=== PATIENT | male | born 1980 | race Caucasian/White ===

== ENCOUNTER 2019-11-21 19:41 | Inpatient (IN) | payer OTHER ==
[~2019-11-21] VITALS: Ht 182.9 cm; Wt 60.5 kg
[2019-11-21] MEDS ORDERED: ONDANSETRON HCL/PF 4 MG/2 ML VIAL ONE (20:19)
[2019-11-21] MEDS ORDERED: HYDROMORPHONE 1 MG/1 ML DISP.SYRIN ONE (20:19)
[2019-11-21] MEDS ORDERED: ACETAMINOPHEN 325 MG TABLET ONE (20:19)
[2019-11-21] MEDS ORDERED: CEFEPIME 1 GM VIAL ONE (20:21)
[2019-11-21] MEDS ORDERED: VANCOMYCIN 1 GM VIAL ONE (20:21)
[2019-11-21 20:27] LABS: BASOPHILS # (AUTO) 0.1 /CMM (0.0-0.2); BASOPHILS % (AUTO) 0.5 % (0.0-2.0); EOSINOPHILS % (AUTO) 0.2 % (0.0-6.0); HEMATOCRIT 37 % (39-51); HEMOGLOBIN 11.5 g/dL (13.5-17.5); LYMPHOCYTES # (AUTO) 1.4 /CMM (0.8-4.8); LYMPHOCYTES % (AUTO) 8.8 % (20.0-44.0); MEAN CORPUSCULAR HGB CONC 31 g/dl (31.0-36.0); MEAN CORPUSCULAR VOLUME 83 fL (80-96); MONOCYTES # (AUTO) 1.9 /CMM (0.1-1.30); MONOCYTES % (AUTO) 12.2 % (2.0-12.0); NEUTROPHILS # (AUTO) 12.4 /CMM (1.8-8.9); NEUTROPHILS % (AUTO) 78.3 % (43.0-81.0); PLATELET COUNT (AUTO) 618 /CMM (150-450); RED BLOOD CELL COUNT(AUTO) 4.45 MIL/uL (4.5-6.0); WHITE BLOOD COUNT (AUTO) 15.9 K/uL (4.3-11.0)
[2019-11-21] MEDS ORDERED: IV NS 0.9% 1,000 ML BAG IV ONE (20:30)
[2019-11-21] MEDS ORDERED: VANCOMYCIN 1 GM in IV D5W 250 ML IV ONE (20:30)
[2019-11-21] MEDS ORDERED: ACETAMINOPHEN 325 MG TABLET PO ONE (20:30)
[2019-11-21] MEDS ORDERED: ONDANSETRON HCL/PF 4 MG/2 ML VIAL IV ONE (20:30)
[2019-11-21] MEDS ORDERED: CEFEPIME 1 GM in IV D5W 50 ML IV ONE (20:30)
[2019-11-21] MEDS ORDERED: HYDROMORPHONE INJ 0.5 MG/0.5 ML SYRINGE IV ONE (20:30)
[2019-11-21 20:34] LABS: CALCIUM, SERUM 9.1 mg/dL (8.5-10.1); CREATININE 0.8 mg/dL (0.6-1.3); POTASSIUM 3.2 mmol/L (3.5-5.1)
[2019-11-21 20:40] LABS: ALBUMIN 2.3 g/dL (3.4-5.0); BILIRUBIN,TOTAL 0.5 mg/dL (0.2-1.0); TOTAL PROTEIN, SERUM 8.7 g/dL (6.4-8.2)
--- NOTE | 2019-11-21 20:59 | NUR ---
PT C/O SOB, CHRISTIANO BUTTOCK & LT ANKLE WOUND PAIN. PT AAOX3, VSS. RR EVEN & UNLABORED. DENIES CP, DIZZINESS, N/V, WEAKNESS AT THIS TIME. PT SEEN & EVAL'D BY DR. COKER. MEDICATED ORDERED, PT LAURIE WELL. WILL CONT TO MONITOR.
[2019-11-21 21:03] LABS: C-REACTIVE PROTEIN 34.7 mg/dL (0.0-0.9)
--- NOTE | 2019-11-21 21:03 | NUR ---
COVID SWAB SENT TO LAB
--- NOTE | 2019-11-21 21:17 | NUR ---
[facility]# [phone] FAX# [phone]
--- NOTE | 2019-11-21 21:43 | NUR ---
REPORT GIVEN TO SANDY PEÑA FOR TEMI.
[2019-11-21] MEDS ORDERED: MAG HYDROX/AL HYDROX/SIMETH 30 ML UDC PO PRN (22:00)
[2019-11-21] MEDS ORDERED: ACETAMINOPHEN 325 MG TABLET PO PRN (22:00)
[2019-11-21] MEDS ORDERED: MAGNESIUM HYDROXIDE 30 ML UDC PO PRN (22:00)
[2019-11-21] MEDS ORDERED: Z GUARD REMEDY 2 OZ OINT TP PRN (22:00)
[2019-11-21] MEDS ORDERED: ONDANSETRON HCL/PF 4 MG/2 ML VIAL IVP PRN (22:00)
[2019-11-21] MEDS ORDERED: ZOLPIDEM TARTRATE 5 MG TABLET PO PRN (22:00)
[2019-11-21] MEDS ORDERED: CEFEPIME 1 GM in IV D5W 50 ML IV SCH (22:00)
[2019-11-21 22:20] VITALS: BP 98/66
[2019-11-21 22:45] VITALS: BP 98/66
--- NOTE | 2019-11-21 23:45 | NUR ---
BEER BREWERCANVAS WORKER APPRENTICE NOTES RECEIVED PATIENT FROM ER VIA BALDOMERO, ALERT AND ORIENTED X 4. VERBALLY RESPONSIVE AND ABLE TO FOLLOW DIRECTIONS. BREATHING REGULAR AND UNLABORED ON ROOM AIR. RIGHT FOREARM G20 IV LINE INTACT AND PATENT, FLUSHING WELL WITH NO BLEEDING OR S/S INFILTRATION NOTED. BODY ASSESSMENT DONE, SEEN WITH BILATERAL BUTTOCK AND SACRAL PRESSURE ULCER, LEFT LEG WOUND, LEFT HEEL AND LEFT FOOT WOUNDS. PHOTO TAKEN, KEPT IN CHART. PATIENT DOESN'T HAVE AN ADVANCE DIRECTIVES AND WISHED TO BE FULL CODE. DENIES SUICIDAL IDEATION OR PAIN/DISCOMFORT AT THIS TIME. BELONGINGS AND VITAL SIGNS CHECKED. BED LOW AND LOCKED ON SEMI FOWLERS POSITION. CALL LIGHT IN REACH. WILL CONTINUE TO MONITOR.
--- NOTE | 2019-11-22 | NUR ---
SPORTS MEDICINE PHYSICIAN NOTES REFUSED VITAL SIGNS TAKING FOR 0000 AND 0400 PER PATIENT DON'T BOTHER HIM. RISK AND BENEFITS EXPLAINED.
--- NOTE | 2019-11-22 | NUR ---
LINE DEPARTMENT SUPERVISOR NOTES REFUSED TO PUT ON PRODUCTION CREW SUPERVISOR AND TO PLACE MONEY ON THE SAFE, RISK AND BENEFITS EXPLAINED. MICHELE CARBAJAL NOTIFIED.
[2019-11-22 00:11] LABS: BILIRUBIN,DIRECT 0.1 mg/dL (0.0-0.2)
[2019-11-22] MEDS ORDERED: IV PREMIX NS +20MEQ KCL 1 L IV ONE (00:34)
[2019-11-22] MEDS: Potassium Chloride 20 MEQ in IV NS 0.9% 1,000 ML IV PRN ×2 (00:45→13:48)
--- NOTE | 2019-11-22 03:00 | NUR ---
FREIGHT ROUTER NOTES INFORMED MICROFILM CLERK SOLOMON OF PATIENT'S VTE SCORE OF 4 WITH ORDERS FOR LOVENOX 40MG SQ DAILY AND DVT PUMP APPLICATION NOTED AND CARRIED OUT.
--- NOTE | 2019-11-22 04:00 | NUR ---
FIRE PROTECTION SPECIALIST NOTES REFUSED VITAL SIGNS TAKING FOR 0400 PER PATIENT DON'T BOTHER HIM. RISK AND BENEFITS EXPLAINED.
[2019-11-22] MEDS ORDERED: VANCOMYCIN 500 MG VIAL ONE (04:03)
[2019-11-22] MEDS ORDERED: VANCOMYCIN 1 GM VIAL ONE (04:03)
[2019-11-22] MEDS ORDERED: VANCOMYCIN 1.25 GM in IV D5W 250 ML IV SCH (05:00)
--- NOTE | 2019-11-22 06:25 | NUR ---
PROFESSOR OF ENVIRONMENTAL SCIENCE CLOSING NOTES PATIENT IN BED ALERT AND ORIENTED X 4. AFEBRILE WITH NO S/S OF DISTRESS OBSERVED. RIGHT FOREARM G20 IV LINE PATENT AND INFUSING WELL. NO COMPLAINTS OF PAIN/DISCOMFORT REPORTED AT THIS TIME. BED LOW AND LOCKED ON SEMI FOWLERS POSITION. CALL LIGHT IN REACH. WILL ENDORSE TO MORNING SHIFT FOR TEMI.
--- NOTE | 2019-11-22 07:51 | NUR ---
RN NOTES RECEIVED PATIENT IN BED RESTING COMFORTABLY IN MODERATE HIGH BACK REST. ALERT AND ORIENTED X 4. NO SIGNS OF DISTRESS NOTED AT THIS TIME. STILL REFUSED CARDIAC MONITORING, MD MADE AWARE. IV FLUIDS ON RIGHT FOREARM #20 IV LINE PATENT AND INFUSING WELL. SAFETY MEASURES IN PLACE, BED LOW AND LOCKED POSITION WITH SIDE RAILS UP X2. CALL LIGHT IN REACH. WILL CONTINUE TO MONITOR.
[2019-11-22] MEDS ORDERED: FEE PK DOSING 1 MIN EA MC ONE (08:18)
[2019-11-22] MEDS: PANTOPRAZOLE 40 MG VIAL IV SCH (08:45)
[2019-11-22] MEDS: ENOXAPARIN SODIUM 40 MG/0.4 ML DISP.SYRIN SQ SCH ×2 (08:45→08:57)
--- NOTE | 2019-11-22 08:57 | NUR ---
RN NOTES PT CHANGES HIS MIND AND REFUSED LOVENOX, EXPLAINED RISKS AND BENEFITS, BUT PATIENT STILL REFUSED. WILL CONTINUE TO MONITOR.
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
[2019-11-22] MEDS: VANCOMYCIN 1 GM in IV D5W 250 ML IV SCH ×2 (13:12→22:08)
[2019-11-22] MEDS: HYDROCODONE/APAP 5/325MG 1 EACH TABLET PO PRN ×2 (18:04→22:09)
--- NOTE | 2019-11-22 18:45 | NUR ---
RN NOTES PATIENT IN BED RESTING COMFORTABLY IN MODERATE HIGH BACK REST. ALERT AND ORIENTED X 4. NO SIGNS OF DISTRESS NOTED THROUGHOUT THE SHIFT. REFUSED LAB DRAW, MADE AWARE. IV FLUIDS ON RIGHT FOREARM #20 IV LINE PATENT AND INFUSING WELL. SAFETY MEASURES IN PLACE, BED LOW AND LOCKED POSITION WITH SIDE RAILS UP X2. CALL LIGHT IN REACH. WILL ENDORSE TO MACHINE GREASER NURSE FOR TEMI.
--- NOTE | 2019-11-22 19:10 | NUR ---
RN PM MED SURGE NOTES REPORT RECIEVED FROM DARON DELGADO. PATIENT IN BED RESTING COMFORTABLY IN MODERATE HIGH BACK REST. ALERT AND ORIENTED X 4. IV FLUIDS ON RIGHT FOREARM #20 INFUSING NS PLUS 20MEQ AT 90 ML PER HOUR. . SAFETY MEASURES IN PLACE, BED LOW AND LOCKED POSITION WITH SIDE RAILS UP X2. CALL LIGHT IN REACH.
[2019-11-22] MEDS: CEFEPIME 1 GM in IV D5W 50 ML IV SCH (20:41)
--- NOTE | 2019-11-22 22:30 | NUR ---
AIR MATTRESS. WOUND CARE PERFORMED. NO KCI MATTRESS WAS DELIVERED. PATIENT TRANSFERRED TO ISOFLEX MATTRESS IN THE MEAN TIME. PATIENT TURNING INDEPEDNETLY AND REFUSIGN TO BE ASSISTED WITH TURNING. STAES "I DON'T NEED HELP, I CAN DO IT MY SELF." PERINEAL CARE GIVNE. DRESSING CHANGE PERFORMED TO SACRAL WOUND S AND BILATERAL WOUNDS ON BUTTOCKS. WILL CONT TO MONITOR.
[2019-11-23] MEDS: HYDROCODONE/APAP 5/325MG 1 EACH TABLET PO PRN ×2 (04:19→08:35)
--- NOTE | 2019-11-23 05:00 | NUR ---
refused am labs Addendum: 11/23/19 at 0747 by DANICA JAFFE RN spoke with pharmacist reguarding vancomycin not being give. patient refused am labs. pharmacist states that md should be notified because the vancomycin cant be safely givne till lab values are known for safe administration.
[2019-11-23 08:00] VITALS: BP 144/69
--- NOTE | 2019-11-23 08:00 | NUR ---
MS RN AM NOTES RECEIVED PATIENT IN BED RESTING COMFORTABLY .ALERT AND ORIENTED X 4. NO SIGNS OF DISTRESS NOTED AT THIS TIME. STILL REFUSED CARDIAC MONITORING, MD MADE AWARE. IV FLUIDS NS +20 MEQ KCL AT 90 ML/HR ON RIGHT FOREARM #20 IV LINE PATENT AND INFUSING WELL. PT HAS BEEN REFUSING VANCO TROUGH AND IV ATB VANCO WAS DUE AT 5AM AND PT HAS BEEN REFUSING VANCO IV ATB FOR THE PAST 3 DAYS PER NIGHT NURSE-WHO NOTIFIED DR BHATIA AND PHARMACIST,NASEEM. PATIENT FINALLY AGREED TO HAVE BLOOD DRAWN FOR LAB TEST AFTER EXPLAINING THE RISKS AND BENEFITS.SAFETY MEASURES IN PLACE, BED LOW AND LOCKED POSITION WITH SIDE RAILS UP X2. CALL LIGHT IN REACH. WILL CONTINUE TO MONITOR.
[2019-11-23] MEDS: PANTOPRAZOLE 40 MG VIAL IV SCH (08:29)
[2019-11-23] MEDS: ENOXAPARIN SODIUM 40 MG/0.4 ML DISP.SYRIN SQ SCH (08:37)
[2019-11-23 08:56] LABS: BASOPHILS % (AUTO) 0.5 % (0.0-2.0); EOSINOPHILS % (AUTO) 4.9 % (0.0-6.0); HEMATOCRIT 33 % (39-51); HEMOGLOBIN 10.2 g/dL (13.5-17.5); LYMPHOCYTES # (AUTO) 1.4 /CMM (0.8-4.8); LYMPHOCYTES % (AUTO) 14.3 % (20.0-44.0); MEAN CORPUSCULAR HGB CONC 31 g/dl (31.0-36.0); MEAN CORPUSCULAR VOLUME 84 fL (80-96); MONOCYTES % (AUTO) 10.7 % (2.0-12.0); NEUTROPHILS # (AUTO) 6.6 /CMM (1.8-8.9); NEUTROPHILS % (AUTO) 69.6 % (43.0-81.0); PLATELET COUNT (AUTO) 536 /CMM (150-450); RED BLOOD CELL COUNT(AUTO) 3.96 MIL/uL (4.5-6.0); WHITE BLOOD COUNT (AUTO) 9.4 K/uL (4.3-11.0)
[2019-11-23 09:21] LABS: CALCIUM, SERUM 8.7 mg/dL (8.5-10.1); CREATININE 0.5 mg/dL (0.6-1.3); MAGNESIUM 1.9 mg/dL (1.8-2.4); PHOSPHORUS 2.9 mg/dL (2.5-4.9); POTASSIUM 3.3 mmol/L (3.5-5.1)
--- NOTE | 2019-11-23 09:29 | NUR ---
WOUND CARE CONSULT: PT REFUSED SKIN ASSESSMENT. REVIEWED CHART, NURSING DOCUMENTATION AND PHOTOS WHICH SHOW MULTIPLE WOUNDS, PRESENT ON ADMISSION INCLUDING LOWER EXTREMITIES. RECOMMENDATIONS MADE FOR SKIN PROTECTION AND WOUND CARE OF TORSO WOUNDS (BASED ON PHOTOS). RECOMMEND SURGICAL AND DPM CONSULTS. DR YUDI LUIS AND DR CHOI NOTIFIED OF CONSULT REQUESTS. PT IS ON [place] ISOFLEX LOW AIRLOSS BED. MD IN AGREEMENT WITH PLAN OF CARE.
[2019-11-23] MEDS: VANCOMYCIN 1 GM in IV D5W 250 ML IV SCH ×2 (10:30→23:41)
--- NOTE | 2019-11-23 10:38 | NUR ---
NOTIFIED DR BHATIA OF PT HAVING MRSA POSITIVE IN BLOOD WITH NO NEW ORDER. PT IS ON VANCO IV
--- NOTE | 2019-11-23 10:40 | NUR ---
MAILMASTER met with pt again today for an assessment. MAILMASTER introduced self, explained the role of the SW and purpose of the visit. Pt is cooperative today with SW. Pt is alert and oriented x 3. Pt reports he has been homeless since September 2019. Pt reports, he was residing at [address] [place] [address] prior to becoming homeless. Pt receives SSDI, but declined to say how much he is getting monthly. Pt reports, he has a place to go to upon discharge but would not disclose where he is going. Pt reports, he will make his own arrangements to get there. Pt reports, no history of psychiatric diagnosis or hospitalizations. Pt denies suicidal and homicidal ideations at this time. Pt is wheelchair bound and is able to transfer himself independently in and out of his wheelchair. Pt uses marijuana daily but denies any other drugs or cigarette use. Pt denies alcohol use/ or abuse. Pt declined all resources. MAILMASTER provided pt with active listening, supportive counseling, emotional support, validation of feelings and positive coping skills. No other social service needs are requested at this time. Speech Language Therapist to remain available for support as needed.
[2019-11-23 11:05] LABS: APPEARANCE,URINE CLOUDY (CLEAR); BILIRUBIN,URINE NEGATIVE (NEGATIVE); BLOOD, URINE NEGATIVE Ery/uL (NEGATIVE); COLOR,URINE YELLOW (YELLOW); KETONES,URINE NEGATIVE (NEGATIVE); LEUKOCYTE ESTERASE ,URINE SMALL (NEGATIVE); NITRITE, URINE NEGATIVE (NEGATIVE); PH,URINE 6.5 (5.0-8.0); PROTEIN,URINE NEGATIVE (NEGATIVE); UGLUCOSE NEGATIVE (NEGATIVE); UROBILINOGEN,URINE 0.2 EU/dL (0.2)
[2019-11-23] MEDS: Potassium Chloride 20 MEQ in IV NS 0.9% 1,000 ML IV PRN ×2 (11:07→23:47)
[2019-11-23] MEDS: DAKINS QUARTER STRENGTH (0.125%) 480 ML BOTTLE TOP SCH (11:23)
[2019-11-23] MEDS: oxyCODONE IR immediate release 5 MG PO PRN ×2 (11:50→19:42)
[2019-11-23 13:12] LABS: BACTERIA,URINE Few /HPF (None Seen); RBC,URINE 0-2 /HPF (0-2); SQUAMOUS EPITHELIAL CELL,UR Few /HPF (None Seen)
[2019-11-23 13:13] LABS: YEAST,URINE Few /HPF (None Seen)
[2019-11-23] MEDS ORDERED: POTASSIUM CHLORIDE 20 MEQ TAB.PRT.SR PO ONE (14:00)
[2019-11-23 16:07] VITALS: BP 100/60
--- NOTE | 2019-11-23 18:11 | NUR ---
PT IS RESTING IN BED BUSY TALKING IN HIS CELL PHONE.DENIES PAIN OR DISTRESS AT THIS TIME. WITH ONGOING IVF OF NS +20 MEQ KCL RUNNING AT 90 ML/HR INFUSING WELL TO LFA. EXCISIONAL WOUND DEBRIDEMENT OF LLE AND LT HEEL WOUNDS WAS DONE THIS AFTERNOON BY HEATHER PRAKASH. PT TOLERATED WELL.AFLOAT CHRISTIANO HEELS WITH PILLOWS AND PT WAS ABLE TO TURN BY HIMSELF.WOUND TX DONE TO HIS CHRISTIANO BUTTOCKS AND SACRAL ST 4 ORDERED. ON ISOFLEX MATTRESS. CALL LIGHT PLACED WITHIN REACH.
--- NOTE | 2019-11-23 19:30 | NUR ---
RN PM OPENING NOTE REPORT RECIEVED FROM DOLLY DELGADO. PT IN BED IN NO APPARENT DISTRESS. IVF OF NS +20 MEQ KCL RUNNING AT 90 ML/HR INFUSING WELL TO LFA GAUGE 22. PER REPORT EXCISIONAL WOUND DEBRIDEMENT OF LLE AND LT HEEL WOUNDS WAS DONE THIS AFTERNOON BY HEATHER PRAKASH. BLE AFLOAT CHRISTIANO HEELS WITH PILLOWS AND PT WAS ABLE TO TURN BY HIMSELF. ON ISOFLEX MATTRESS. CALL LIGHT PLACED WITHIN REACH. VERBALIZED UNDERSTANDING TO CALL FOR ASSISTANCE IF NEEDED.
[2019-11-23 20:00] VITALS: BP 108/62
[2019-11-23] MEDS: CEFEPIME 1 GM in IV D5W 50 ML IV SCH (20:21)
[2019-11-24] MEDS: oxyCODONE IR immediate release 5 MG PO PRN ×4 (02:23→21:05)
--- NOTE | 2019-11-24 06:24 | NUR ---
refused blood draw. supervisor dental laboratory will come back later after breakfast
--- NOTE | 2019-11-24 06:50 | NUR ---
RN PM CLOSING NOTES. PT SEEN IN BED IN NO APPARENT DISTRESS. ON RA. IVF INFUSING TO LEFT FA 22 GAUGE. NO S/S OF INFILTRATION. DRESSING CHANGED PERFORMED LAST NIGHT PER ORDERS ON SACRAL D/T SOILING. ON ISOFLEX AIR MATTRESS. CALL LIGHT IN REACH BED DOWN AND LOCKED.
--- NOTE | 2019-11-24 07:30 | NUR ---
RN OPENING NOTES RECEIVED PT IN BED. AWAKE ALERT AND ORIENTED X4. NO CARDIAC OR RESPIRATORY DISTRESS NOTED. NO SOB NOTED. SATURATING WELL ON ROOM AIR. IV ACCESS NOTED ON L FOREARM G22. INTACT AND PATENT AND FLUSHING WELL. NO S/S OF INFECTION OR INFILTRATION NOTED. SAFETY PRECAUTIONS IN PLACE. BED LOCKED AND IN LOW POSITION. SIDE RAILS UP X2. BED ALARM ON. CALL LIGHT WITHIN REACH. WILL CONT TO MONITOR.
[2019-11-24 08:00] VITALS: BP 98/51
[2019-11-24] MEDS: PANTOPRAZOLE 40 MG VIAL IV SCH (08:24)
[2019-11-24] MEDS: ENOXAPARIN SODIUM 40 MG/0.4 ML DISP.SYRIN SQ SCH (08:26)
[2019-11-24] MEDS: DAKINS QUARTER STRENGTH (0.125%) 480 ML BOTTLE TOP SCH (08:47)
[2019-11-24] MEDS: THERAHONEY GEL 1.5 OZ TUBE TP SCH (08:48)
[2019-11-24] MEDS: VANCOMYCIN 1 GM in IV D5W 250 ML IV SCH ×2 (10:38→22:43)
--- NOTE | 2019-11-24 14:00 | NUR ---
WOUND CARE WOUND CARE DONE. PT TOLERATED TX PROCEDURE WELL. NO C/O PAIN OR DISCOMFORT.
[2019-11-24 14:50] LABS: BASOPHILS % (AUTO) 0.5 % (0.0-2.0); EOSINOPHILS % (AUTO) 5.7 % (0.0-6.0); HEMATOCRIT 27 % (39-51); HEMOGLOBIN 8.6 g/dL (13.5-17.5); LYMPHOCYTES # (AUTO) 1.8 /CMM (0.8-4.8); LYMPHOCYTES % (AUTO) 20.6 % (20.0-44.0); MEAN CORPUSCULAR HGB CONC 32 g/dl (31.0-36.0); MEAN CORPUSCULAR VOLUME 83 fL (80-96); MONOCYTES # (AUTO) 1.1 /CMM (0.1-1.30); MONOCYTES % (AUTO) 13.2 % (2.0-12.0); NEUTROPHILS # (AUTO) 5.1 /CMM (1.8-8.9); PLATELET COUNT (AUTO) 516 /CMM (150-450); RED BLOOD CELL COUNT(AUTO) 3.28 MIL/uL (4.5-6.0); WHITE BLOOD COUNT (AUTO) 8.5 K/uL (4.3-11.0)
[2019-11-24 15:38] LABS: CALCIUM, SERUM 8.1 mg/dL (8.5-10.1); CREATININE 0.4 mg/dL (0.6-1.3); MAGNESIUM 1.7 mg/dL (1.8-2.4); POTASSIUM 4.2 mmol/L (3.5-5.1)
[2019-11-24 16:00] VITALS: BP 100/57
--- NOTE | 2019-11-24 18:17 | NUR ---
RN CLOSING NOTES RECEIVED PT IN BED. AWAKE ALERT AND ORIENTED X4. NO CARDIAC OR RESPIRATORY DISTRESS NOTED. NO SOB NOTED. SATURATING WELL ON ROOM AIR. IV ACCESS NOTED ON L FOREARM G22. INTACT AND PATENT AND FLUSHING WELL. NO S/S OF INFECTION OR INFILTRATION NOTED. WOUND CARE TX DONE TODAY. TOLERATED WELL. PAIN WAS WELL MANAGED THROUGHOUT THE SHIFT. SAFETY PRECAUTIONS IN PLACE. BED LOCKED AND IN LOW POSITION. SIDE RAILS UP X2. BED ALARM ON. CALL LIGHT WITHIN REACH. WILL CONT TO MONITOR.
--- NOTE | 2019-11-24 19:30 | NUR ---
RN NOTE RECEIVED PT IN BED, AO X 4, NO S/SX OF ACUTE DISTRESS AT THIS TIME. NO SOB NOTED. PATIENT'S BREATHING IS EVEN AND UNLABORED. SATURATING >95% ON ROOM AIR. NOTED IV SITE ON LFA G22, PATENT AND FLUSHING WELL, NO S/S OF INFECTION OR INFILTRATION. PARAPLEGIA WAS NOTED, BUT PATIENT ABLE TO URINATE USING URINAL AT BEDSIDE. SAFETY MEASURES IMPLEMENTED PER PROTOCOL. PATIENT BED ALARM IS ON. HEAD OF BED ELEVATED. BED IS LOCKED, IN LOWEST POSITION AND SIDE RAILS UP. CALL LIGHT WITHIN REACH OF THE PATIENT. ISOLATION PRECAUTIONS IN PLACE. WILL CONTINUE TO MONITOR AND REASSESS FOR ANY CHANGES.
[2019-11-24 20:00] VITALS: BP 108/58
[2019-11-24] MEDS: CEFEPIME 1 GM in IV D5W 50 ML IV SCH (20:42)
--- NOTE | 2019-11-24 21:00 | NUR ---
RN NOTE PATIENT C/O 10/10 PAIN AT BUTTOCKS/SACRUM, TRIED TO REPOSITION, PAIN REMAINS THE SAME. PRN PAIN MEDICATION ADMINISTERED ORDERED. WILL CONTINUE TO MONITOR.
[2019-11-25] MEDS: oxyCODONE IR immediate release 5 MG PO PRN ×4 (03:14→21:58)
[2019-11-25 04:00] VITALS: BP 110/78
[2019-11-25] MEDS: Potassium Chloride 20 MEQ in IV NS 0.9% 1,000 ML IV PRN (04:34)
--- NOTE | 2019-11-25 05:30 | NUR ---
RN NOTE PATIENT C/O PAIN AT IV SITE AT LFA. NOTED LEAKING AND INFILTRATION FROM IV LINE. REMOVED AND REINSERTED ANOTHER LINE AT RIGHT HAND G22. ASEPTIC TECHNIQUE WAS OBSERVED. PATIENT REFUSED IV INFUSION OF KCL 20 MEQS IN NS FOR NOW. REQUESTED TO HAVE IT REINFUSED LATER.
[2019-11-25 08:00] VITALS: BP 100/52
--- NOTE | 2019-11-25 08:00 | NUR ---
RN OPENING NOTES RECEIVED PT IN BED. AWAKE ALERT AND ORIENTED X4. NO RESPIRATORY DISTRESS NOTED. NO SOB NOTED. SATURATING WELL ON ROOM AIR. IV ACCESS NOTED ON RIGHT HAND G22 WITH NS +20 MEQ KCL AT 90 ML /HR. INTACT AND PATENT AND FLUSHING WELL. NO S/S OF INFECTION OR INFILTRATION NOTED. SAFETY PRECAUTIONS IN PLACE. BED LOCKED AND IN LOW POSITION. SIDE RAILS UP X2. BED ALARM ON. CALL LIGHT WITHIN REACH. WILL CONT TO MONITOR.
[2019-11-25] MEDS: PANTOPRAZOLE 40 MG VIAL IV SCH (08:56)
[2019-11-25] MEDS: DAKINS QUARTER STRENGTH (0.125%) 480 ML BOTTLE TOP SCH (09:42)
[2019-11-25 09:58] LABS: BASOPHILS # (AUTO) 0.1 /CMM (0.0-0.2); BASOPHILS % (AUTO) 1.1 % (0.0-2.0); EOSINOPHILS % (AUTO) 5.9 % (0.0-6.0); HEMATOCRIT 28 % (39-51); HEMOGLOBIN 8.8 g/dL (13.5-17.5); LYMPHOCYTES # (AUTO) 1.6 /CMM (0.8-4.8); LYMPHOCYTES % (AUTO) 18.5 % (20.0-44.0); MEAN CORPUSCULAR HGB CONC 32 g/dl (31.0-36.0); MEAN CORPUSCULAR VOLUME 84 fL (80-96); MONOCYTES % (AUTO) 11.8 % (2.0-12.0); NEUTROPHILS # (AUTO) 5.3 /CMM (1.8-8.9); NEUTROPHILS % (AUTO) 62.7 % (43.0-81.0); PLATELET COUNT (AUTO) 579 /CMM (150-450); RED BLOOD CELL COUNT(AUTO) 3.36 MIL/uL (4.5-6.0); WHITE BLOOD COUNT (AUTO) 8.4 K/uL (4.3-11.0)
[2019-11-25] MEDS: THERAHONEY GEL 1.5 OZ TUBE TP SCH (10:06)
[2019-11-25 10:13] LABS: CREATININE 0.5 mg/dL (0.6-1.3); MAGNESIUM 1.6 mg/dL (1.8-2.4); PHOSPHORUS 3.6 mg/dL (2.5-4.9); POTASSIUM 3.8 mmol/L (3.5-5.1)
[2019-11-25] MEDS: ENOXAPARIN SODIUM 40 MG/0.4 ML DISP.SYRIN SQ SCH (10:55)
[2019-11-25] MEDS: VANCOMYCIN 1 GM in IV D5W 250 ML IV SCH ×2 (11:17→23:51)
[2019-11-25 16:00] VITALS: BP 95/50
--- NOTE | 2019-11-25 18:56 | NUR ---
RN CLOSING NOTES PT RESTING IN BED. AWAKE ALERT AND ORIENTED X4. RESPIRATORY DISTRESS NOTED . NO SOB NOTED. SATURATING WELL ON ROOM AIR. IV ACCESS NOTED ON RIGHT HAND G22. INTACT AND PATENT AND FLUSHING WELL WITH NS +20 MEQ OF KCL RUNNING AT 90 ML /HR. NO S/S OF INFECTION OR INFILTRATION NOTED. WOUND CARE TX DONE TODAY. TOLERATED WELL. PAIN WAS WELL MANAGED THROUGHOUT THE SHIFT. SAFETY PRECAUTIONS IN PLACE. BED LOCKED AND IN LOW POSITION. SIDE RAILS UP X2. BED ALARM ON. CALL LIGHT WITHIN REACH. WILL ENDORSE TO NEON INSTALLER.
[2019-11-25 20:00] VITALS: BP 98/49
[2019-11-25 20:31] VITALS: BP 98/49
--- NOTE | 2019-11-25 21:04 | NUR ---
MS/RN OPENING NOTES RECEIVED PATIENT IN BED, AWAKE, ALERT X3, ABLE TO VERBALIZE NEEDS, LAST PAIN MEDICATION GIVEN FEW HOURS AGO, OBSERVED GRIMACE AND GUARDING WITH IRRITABILITY BUT ASSISTED WITH NEEDSMUSES PHONES AND ASKED TO BE PLUGGED, REQUESTED DELIVERY ONLINE BY [facility]ANT[facility] AND WILL BE DELIVERED SOON TO FOLLOW UP, DISCUSSED PLAN OF CARE AND THAT WILL BE PHOT TO BE TAKEN TONIGHT BUT REFUSED TO HAVE IT DONE AND WAS AWARE THAT IT IS IMPORTANT TO SEE THE PROGRESS OR IMPROVEMENT, STILL DECLINED, PATIENT CALL LIGHTS WITHIN REACH, BED LOCKED, PAINMEDCIATION TO BE GIVEN ONCE ITS DUE AND REFUSE OTHER RELIEF OF PAIN MEASURES SUCH WARM COMPRESS OR TYLENOL. PATIENT DUE FOR IV ANTIBIOTCS, AND TO MONITOR FOR ANY CHANGES.
[2019-11-25] MEDS: CEFEPIME 1 GM in IV D5W 50 ML IV SCH (21:57)
[2019-11-26] MEDS: Potassium Chloride 20 MEQ in IV NS 0.9% 1,000 ML IV PRN (03:40)
[2019-11-26] MEDS: oxyCODONE IR immediate release 5 MG PO PRN ×4 (03:49→23:32)
--- NOTE | 2019-11-26 03:52 | NUR ---
MS/RN NOTES PATIENT REPORTED SEVERE PAIN, MOANING AND GUARDING AND REQUESTED NEEDED MEDICATION FRO PAIN OXY IR TO BE GIVEN FOR RELIEF, VITAL SIGNS CHECK t 112/59, PULSE RATE AT 78. ALERT, ORIENTED ALSO REQUESTED FOR SOME APPLE JUICE, IV FLUID WITH POTASSIUM REPLACED, HELD BY PATIENT AT THIS TIME, DISCUSSED IMPORTANCE. TO MONITOR.
[2019-11-26 04:00] VITALS: BP 112/58
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
--- NOTE | 2019-11-26 07:30 | NUR ---
MS/RN OPENING NOTES Received patient resting in bed, A&O x 3. No complaints of pain/discomfort at this time, able to verbalize needs. Breathing even and non-labored on RA. No respiratory or cardiac distress noted. IV access noted on L FA # 22, patent and intact, currently refusing fluids. Explained the risks and benefits of fluids, patient verbalizes understanding. Fall precautions maintained, call light within reach. Will continue to monitor patient for any changes in condition.
[2019-11-26 08:05] VITALS: BP 104/55
[2019-11-26] MEDS: DAKINS QUARTER STRENGTH (0.125%) 480 ML BOTTLE TOP SCH (08:42)
[2019-11-26] MEDS: PANTOPRAZOLE 40 MG VIAL IV SCH (08:42)
[2019-11-26] MEDS: THERAHONEY GEL 1.5 OZ TUBE TP SCH (08:43)
[2019-11-26] MEDS: ENOXAPARIN SODIUM 40 MG/0.4 ML DISP.SYRIN SQ SCH (08:43)
--- NOTE | 2019-11-26 08:50 | NUR ---
MS/RN NOTES Patient refused lovenox, states "I don't need another blood thinner." Explained risks and benefits of lovenox, patient verbalizes understanding.
[2019-11-26] MEDS: VANCOMYCIN 1 GM in IV D5W 250 ML IV SCH ×2 (11:51→23:05)
[2019-11-26 16:19] VITALS: BP 102/50
[2019-11-26 16:35] VITALS: BP 97/47
--- NOTE | 2019-11-26 18:56 | NUR ---
MS/RN CLOSING NOTES Patient resting in bed, A&O x 3. No complaints of pain/discomfort at this time, last oxy given at 1725. Breathing even and non-labored on RA. No respiratory or cardiac distress noted. IV access noted on L FA # 22, patent and intact, and flushing well. Wound care done. Fall precautions maintained, call light within reach. Will endorse to slot shift manager nurse.
--- NOTE | 2019-11-26 19:00 | NUR ---
MS/RN OPENING NOTES: Received patient resting in bed, A&O x 3. No complaints of pain/discomfort at this time, able to verbalize needs. Breathing even and non-labored on RA. No S/S of distress noted. IV access noted on L FA # 22, patent and intact, currently refusing fluids. Explained the risks and benefits during exchange of shift, patient verbalizes understanding and still refused. Fall precautions maintained, call light within reach. Will continue to monitor patient for any changes in condition.
[2019-11-26 20:00] VITALS: BP 113/63
--- NOTE | 2019-11-26 20:45 | NUR ---
MS/RN NOTES: GAVE PT. REPORT TO DAX, RECEIVING RN FOR CONTINUITY OF CARE.
--- NOTE | 2019-11-26 21:05 | NUR ---
MS RN NOTES RECEIVED PATIENT FROM MS3, ALERT AND ORIENTED X 4. VERBALLY RESPONSIVE AND ABLE TO FOLLOW DIRECTIONS. BREATHING REGULAR AND UNLABORED ON ROOM AIR. LEFT FOREARM G22 IV LINE INTACT AND PATENT, FLUSHING WELL WITH NO BLEEDING OR S/S OF INFILTRATION NOTED. REFUSED BODY ASSESSMENTS, RISK AND BENEFITS EXPLAINED. BELONGINGS AND VITAL SIGNS CHECKED BY COMPENSATION COORDINATOR. BED LOW AND LOCKED ON SEMI FOWLERS POSITION. CALL LIGHT IN REACH. WILL CONTINUE TO MONITOR.
--- NOTE | 2019-11-26 21:05 | NUR ---
MS/RN NOTES: PATIENT LEFT UNIT AT 2100 UNDER STABLE CONDITION VIA CLAU ALEXANDRE. PT TRANSFERRED TO ROOM 203. REPORT GIVEN AT BEDSIDE TO SANDY VERDUZCO. BELONGINGS LIST CHECKED AND SIGNED.
[2019-11-26 21:45] VITALS: BP 113/52
[2019-11-26] MEDS: CEFEPIME 1 GM in IV D5W 50 ML IV SCH (21:46)
--- NOTE | 2019-11-26 22:00 | NUR ---
MS RN NOTES NEW IV LINE REINSERTED ON RIGHT FOREARM G24, FLUSHING WELL WITH GOOD BLOOD BACKFLOW. IV ANTIBIOTIC RESUMED. WILL CONTINUE TO MONITOR.
--- NOTE | 2019-11-26 23:40 | NUR ---
MS RN NOTES COMPLAINED OF 9/10 AREAS OF PRESSURE SORE PAIN, OXYCODONE 30MG GIVEN BY MOUTH. NON-PHARMACOLOGICAL INTERVENTIONS PROVIDED. VITAL SIGNS WNL. WILL CONTINUE TO MONITOR.
[2019-11-27 00:04] LABS: CALCIUM, SERUM 8.7 mg/dL (8.5-10.1); CREATININE 0.5 mg/dL (0.6-1.3); POTASSIUM 4.4 mmol/L (3.5-5.1)
[2019-11-27 04:00] VITALS: BP 110/54
--- NOTE | 2019-11-27 06:00 | NUR ---
MS RN NOTES NEW IV LINE REINSERTED ON LEFT FOREARM G24, FLUSHING WELL WITH GOOD BLOOD BACKFLOW. WILL CONTINUE TO MONITOR.
--- NOTE | 2019-11-27 06:30 | NUR ---
MS RN CLOSING NOTES PATIENT IN BED ALERT AND ORIENTED X 4. AFEBRILE WITH NO S/S OF DISTRESS OBSERVED. RIGHT FOREARM G24 IV LINE PATENT AND FLUSHING WELL. NO COMPLAINTS OF PAIN/DISCOMFORT REPORTED AT THIS TIME. BED LOW AND LOCKED ON SEMI FOWLERS POSITION. CALL LIGHT IN REACH. WILL ENDORSE TO MORNING SHIFT FOR TEMI.
--- NOTE | 2019-11-27 06:50 | NUR ---
MS RN NOTES REFUSED BLOOD DRAW FOR AM LABS. RISK AND BENEFITS EXPLAINED. PER PATIENT "LET'S DO IT LATER".
--- NOTE | 2019-11-27 07:20 | NUR ---
RN OPENING NOTES RECEIVED PATIENT IN BED RESTING. NOT IN ANY FORM OF DISTRESS. NO SOB. DENIED PAIN OR DISCOMFORT AT THIS TIME. IV ACCESS INTACT AND PATENT. SAFETY MEASURES IN PLACE. BED IN LOW/LOCKED POSITION. SIDERAILS UPX2, CALL LIGHT IN REACH. WILL CONT TO MONIOTR ACCORDINGLY
[2019-11-27 08:00] VITALS: BP 120/73
[2019-11-27] MEDS: ENOXAPARIN SODIUM 40 MG/0.4 ML DISP.SYRIN SQ SCH (09:00)
[2019-11-27] MEDS: PANTOPRAZOLE 40 MG TABLET.DR PO SCH (09:04)
[2019-11-27] MEDS: DAKINS QUARTER STRENGTH (0.125%) 480 ML BOTTLE TOP SCH (09:07)
[2019-11-27] MEDS: THERAHONEY GEL 1.5 OZ TUBE TP SCH (09:07)
--- NOTE | 2019-11-27 09:08 | NUR ---
PATIENT REFUSED LOVENOX. EXPLAINED RISK AND BENEFITS BUT STILL REFUSED. PER PATIENT, "IT WILL MAKE MY WOUNDS WORST".
[2019-11-27] MEDS: VANCOMYCIN 1 GM in IV D5W 250 ML IV SCH ×2 (11:42→22:13)
--- NOTE | 2019-11-27 14:30 | NUR ---
rn notes refused blood draw x 3 already. explained risk and benefits but still refused.
[2019-11-27] MEDS: ENSURE ENLIVE 237 ML LIQUID (VANILLA) PO SCH ×2 (14:36→17:34)
--- NOTE | 2019-11-27 14:40 | NUR ---
rn notes asked and offered wound care and repositioning, per patient "later man, just give me some time man.".
[2019-11-27] MEDS: oxyCODONE IR immediate release 5 MG PO PRN ×2 (15:31→22:20)
[2019-11-27 16:00] VITALS: BP 126/69
--- NOTE | 2019-11-27 17:35 | NUR ---
rn notes wound care refused at this time. patient stated "later man".
--- NOTE | 2019-11-27 17:57 | NUR ---
rn notes HARDIK Us, reported to the nurse that patient has been refusing to be cleaned throughout the shift. Per TRAIN OPERATOR, patient kept saying "later" every time she went to the room and offer to clean up multiple times.
--- NOTE | 2019-11-27 18:50 | NUR ---
RN CLOSING NOTES PATIENT IN STABLE CONDITION. ALL NEEDS ATTENDED AND PROVIDED. ALL DUE MEDS GIVEN ORDERED. KEPT PATIENT SAFE AND COMFORTABLE. BED IN LOW/LOCKED POSITION. SIDERAILS UPX2,CALL LIGHT IN REACH. WILL ENDORSE TO NIGHT NURSE ACCORDINGLY.
--- NOTE | 2019-11-27 19:00 | NUR ---
RN OPENING NOTES Received patient, awake on bed, A/O x4. Denies any discomfort at this time. Refused wound dressing at this time. Call light within easy reach. Will continue to monitor accordingly.
[2019-11-27 20:08] VITALS: BP 91/80
[2019-11-27 20:18] VITALS: BP 91/80
--- NOTE | 2019-11-28 06:37 | NUR ---
RN CLOSING NOTES Pt awake on bed, resting, using his cellphone. Offered to patient changing of his bed linens, pt refused at this time. Per patient he does not wanted to be moved/turned at this time and wanted to do it later. Also patient refused wound dressing change at this time. Educated patient on the importance of maintaining clean environment and of wound dressing to promote wound healing, pt verbalized understanding but insisted to refused. Call light within easy reach. Will endorsed to the incoming shift.
--- NOTE | 2019-11-28 07:20 | NUR ---
RN OPENING NOTES RECEIVED PATIENT IN BED RESTING. NOT IN ANY FORM OF DISTRESS. NO SOB. DENIED PAIN OR DISCOMFORT AT THIS TIME. IV ACCESS INTACT AND PATENT. SAFETY MEASURES IN PLACE. BED IN LOW/LOCKED POSITION. SIDERAILS UPX2, CALL LIGHT IN REACH. WILL CONT TO MONITOR ACCORDINGLY
[2019-11-28 07:56] VITALS: BP 127/81
[2019-11-28] MEDS: PANTOPRAZOLE 40 MG TABLET.DR PO SCH (08:04)
[2019-11-28] MEDS: ENSURE ENLIVE 237 ML LIQUID (VANILLA) PO SCH ×3 (08:07→16:20)
[2019-11-28] MEDS: oxyCODONE IR immediate release 5 MG PO PRN ×3 (08:13→20:26)
[2019-11-28 08:15] VITALS: BP 127/87
[2019-11-28] MEDS: THERAHONEY GEL 1.5 OZ TUBE TP SCH (08:50)
[2019-11-28] MEDS: DAKINS QUARTER STRENGTH (0.125%) 480 ML BOTTLE TOP SCH (08:50)
[2019-11-28] MEDS: ENOXAPARIN SODIUM 40 MG/0.4 ML DISP.SYRIN SQ SCH (09:00)
--- NOTE | 2019-11-28 09:34 | NUR ---
RN NOTES PATIENT REFUSED LOVENOX. EXPLAINED RISK AND BENEFITS BUT STILL REFUSED.
[2019-11-28 11:19] LABS: BASOPHILS # (AUTO) 0.1 /CMM (0.0-0.2); BASOPHILS % (AUTO) 0.7 % (0.0-2.0); EOSINOPHILS % (AUTO) 3.7 % (0.0-6.0); HEMATOCRIT 34 % (39-51); HEMOGLOBIN 10.7 g/dL (13.5-17.5); LYMPHOCYTES # (AUTO) 1.2 /CMM (0.8-4.8); MEAN CORPUSCULAR HGB CONC 32 g/dl (31.0-36.0); MEAN CORPUSCULAR VOLUME 83 fL (80-96); MONOCYTES # (AUTO) 0.6 /CMM (0.1-1.30); MONOCYTES % (AUTO) 8.1 % (2.0-12.0); NEUTROPHILS # (AUTO) 5.8 /CMM (1.8-8.9); NEUTROPHILS % (AUTO) 72.5 % (43.0-81.0); PLATELET COUNT (AUTO) 821 /CMM (150-450); RED BLOOD CELL COUNT(AUTO) 4.11 MIL/uL (4.5-6.0)
[2019-11-28 11:46] LABS: CALCIUM, SERUM 9.3 mg/dL (8.5-10.1); CREATININE 0.5 mg/dL (0.6-1.3); POTASSIUM 4.5 mmol/L (3.5-5.1)
[2019-11-28] MEDS: VANCOMYCIN 1 GM in IV D5W 250 ML IV SCH (12:26)
--- NOTE | 2019-11-28 12:39 | NUR ---
RN NOTES TERMITE TREATER DEVON CALLED, AND INFORMED RN THAT PATIENT IS GOING TO BE DISCHARGE IN A BOARD AND CARE WITH MIDLINE FOR ABX USE. VERIFIED AND ASKED DR SHORT IF PATIENT IS OK TO BE DISCHARGE IN A BOARD AND CARE WITH MIDLINE AND REMINDED MD THAT PATIENT HAS HX OF DRUG USE. PER DR SHORT, "YES, HE SAYS HE DOESNT USE IV DRUGS".
--- NOTE | 2019-11-28 12:54 | NUR ---
PATIENT REFUSED SKIN PHOTOS.
--- NOTE | 2019-11-28 12:55 | NUR ---
DR STEPH DPM AT BEDSIDE DOING DRESSING CHANGE ON LEFT FOOT.
--- NOTE | 2019-11-28 14:18 | NUR ---
Offered wound care but patient refused at this time. Patient did not want the nurse to do it. Patient wanted to do it by himself. Per patient, "No I'm good man, I can do it myself. Coz I'm gonna do it myself when im out of here.". Patient asked for more supplies. Supplies for wound care provided.
[2019-11-28] MEDS ORDERED: LIDOCAINE/PRILOCAINE 1 EA KIT TP ONE (14:45)
[2019-11-28 16:00] VITALS: BP 100/59
--- NOTE | 2019-11-28 16:20 | NUR ---
midline inserted on left upper arm for cont ABX treatment on discharge
[2019-11-28] MEDS ORDERED: VANC1PLA9 IV (17:27)
--- NOTE | 2019-11-28 19:05 | NUR ---
rn notes iv access on left forearm removed, tip intact, applied pressure. no bleeding. left upper arm midline intact and patent. will leave iv access for cont Abx.
--- NOTE | 2019-11-28 19:25 | NUR ---
RN CLOSING NOTES PATIENT IN STABLE CONDITION. ALL NEEDS ATTENDED AND PROVIDED. ALL DUE MEDS GIVEN ORDERED. KEPT PATIENT SAFE AND COMFORTABLE. BED IN LOW/LOCKED POSITION. SIDERAILS UPX2,CALL LIGHT IN REACH. ENDORSED TO SANDY KIRK ACCORDINGLY. FOR DISCHARGE, PLANNING CONSULTANT AT 2030
--- NOTE | 2019-11-28 19:30 | NUR ---
RN OPENING NOTES Received patient awake on bed resting. Per patient he does not want to go to board and care, instead he will be going home to his uncle's house. Newly placed midline DAVONTE intact and patent. All belongings accounted for, discharge instructions given to patient, discharge papers signed by the patient. Awaiting for arranged transport at this time. Call light within easy reach. Will continue to monitor accordingly.
--- NOTE | 2019-11-28 21:20 | NUR ---
RN NOTES Called to [phone] [employer], spoke to Adore in regard to arranged transport for this patient. Per Pauline, first arranged transport was already at the hospital but unable to get hold the nurse. No phone call direct to the nurse. Gave alternative contact number to contact the nurse directly, awaiting for call back for ETA.
--- NOTE | 2019-11-28 21:50 | NUR ---
FOREST LAW AND POLICY PROFESSOR NOTES Pt discharge home at this time via Lyft arranged by [employer]. Pt is going home. Transported by ADVISORY INTERN to transporting car via wheelchair. All belongings accounted for. Discharge papers given to patient. Left the facility at this time.
== END 2019-11-28 21:50 | disposition home or self-care (01) | DRG 710 ==
LOC: ER 19:41 → TELE 21:44 → MED 11-22 11:15 → MEDSG2 11-26 21:00 → MED 11-28 18:26
PROVIDERS: ADMIT Nurse Practitioner Acute Care; ATTEND Internal Medicine
PROC: 0LBT0ZZ Excision of Left Ankle Tendon, Open Approach (ICD-10-PCS; principal; 2019-11-23)
PROC: 0LBP0ZZ Excision of Left Lower Leg Tendon, Open Approach (ICD-10-PCS; principal; 2019-11-23)
PROC: 05H633Z Insertion of Infusion Device into Left Subclavian Vein, Percutaneous Approach (ICD-10-PCS; 2019-11-28)
PROC: B547ZZA Ultrasonography of Left Subclavian Vein, Guidance (ICD-10-PCS; 2019-11-28)
DX: A41.02 Sepsis due to Methicillin resistant Staphylococcus aureus (principal); R65.20 Severe sepsis without septic shock; E87.1 Hypo-osmolality and hyponatremia; G82.20 Paraplegia, unspecified; E44.0 Moderate protein-calorie malnutrition; E87.6 Hypokalemia; Z59.0 Homelessness; L89.624 Pressure ulcer of left heel, stage 4; L89.894 Pressure ulcer of other site, stage 4; E87.2 Acidosis; D64.9 Anemia, unspecified; Z79.891 Long term (current) use of opiate analgesic; Z91.19 Patient's noncompliance with other medical treatment and regimen; W34.00XS Accidental discharge from unspecified firearms or gun, sequela; G89.4 Chronic pain syndrome; E88.09 Other disorders of plasma-protein metabolism, not elsewhere classified; L97.529 Non-pressure chronic ulcer of other part of left foot with unspecified severity; Z68.1 Body mass index [BMI] 19.9 or less, adult; S31.829A Unspecified open wound of left buttock, initial encounter; S31.819A Unspecified open wound of right buttock, initial encounter; Z89.422 Acquired absence of other left toe(s); S91.102A Unspecified open wound of left great toe without damage to nail, initial encounter; S81.802A Unspecified open wound, left lower leg, initial encounter; X58.XXXA Exposure to other specified factors, initial encounter; Y93.9 Activity, unspecified; Y92.009 Unspecified place in unspecified non-institutional (private) residence as the place of occurrence of the external cause
CPT/HCPCS: 36415; 71045-TC; 80048-TC; 80053-TC; 80202-TC; 81000-TC; 82248-TC; 83605-TC; 83735-TC; 84100-TC; 84484-TC; 85025-TC; 85652-TC; 85730-TC; 86140-TC; 87040-TC; 87070-TC; 87081-TC; 87086-TC; 87186-TC; 93307-TC; A6253; A6403; C9113; G0378; J0692; J1170; J1650; J2405; J3370; J3480; J3490; J7030; J7060